=== PATIENT | female | born 1980 | race Caucasian/White ===

== ENCOUNTER 2022-05-30 13:04 | Emergency (ER) | payer BC, SELFPAY ==
[2022-05-30 13:05] VITALS: BP 85/76; PULSE 101; RESP 24; TEMP 36.9; O2SAT 100
--- NOTE | 2022-05-30 14:08 | EDS_ITS ---
HPI HPI - GI History of Present Illness Chief Complaint: Abd Pain Detail of Chief Complaint: Epigastric gnawing pain with hematemesis Informant: patient Abdominal Pain/Flank Pain Onset: Today (Patient vomited twice what it was dark-colored menstrual appearing blood.) Context: Sudden Onset Timing: Intermittent Quality: Burning Location: Epigastric Current Severity: Mild Maximum Severity: Moderate Worsened by: Food and - (Palpation) Nausea/Vomiting/Emesis GI Symptom: Positive for Nausea and Vomiting (X2 with what patient believes to be blood) Onset: Hours Quality: Positive for Hematemesis Severity: Mild Diarrhea/Melena/Hematochezia GI Symptom: Positive for Diarrhea (Diarrhea started 2 weeks ago. Patient thinks she has norovirus.) and Melena (Patient reports black-colored stool on Monday. She had Pepto-Bismol 10 days ago.); Negative for Hematochezia Associated Symptoms Associated Symptoms: Negative for Dysuria, Frequency, Hematuria or Urgency LMP: Last week, patient is not sexually active Narrative Narrative: Patient is a 42-year-old woman with no significant past medical history other than migraine headaches. She does take meloxicam for her migraine headaches. She states she had diarrhea 2 weeks ago. She believes she had norovirus. This morning she had episode of diarrhea and took Imodium. She states she vomited twice. She had a pink strawberry colored shake for breakfast since she is on a diet. She states the emesis had appearance of dark menstrual colored blood. She vomited twice what appeared to be blood. She does not believe her stool was black this morning. She denies bruising easily or blood in her urine. She did report bleeding of her gums when she brushed her teeth this morning. This is abnormal for her. She is not on an anticoagulant and she is on no antithrombotic agent. She denies fever, chills night sweats. She denies headache, visual, ocular auditory symptoms. She denies chest pain, orthopnea or PND. She does report slight shortness of breath with exertion. She does endorse lightheadedness. She denies thirst or dry mouth. She denies cough or shortness of breath at rest. Patient complains of a gnawing epigastric pain. It does not radiate. She denies intolerance to greasy or fried foods. She denies history of biliary disease. She denies history of renal disease and specifically renal or ureterolithiasis. Prior similar symptoms: No Recent Illness/Hospitalization: No [facility] Medical History (Updated 05/30/22 @ 16:[address] Stefan Rubin MD) Migraine Home Medications loperamide 1 mg/7.5 mL oral liquid (Imodium A-D) 6 mg PO QHS PRN Diarrhea 05/30/22 [History Last Taken 05/29/22] meloxicam 15 mg tablet 15 mg PO QHS PAIN 05/30/22 [History Last Taken 05/28/22] pantoprazole 40 mg tablet,delayed release 40 mg PO DAILY GERD 05/30/22 [History Last Taken 05/29/22] rizatriptan 10 mg tablet 10 mg PO PRN PRN Migraine Headache 05/30/22 [History Last Taken 05/28/22] sucralfate 1 gram tablet (Carafate) 1 g PO .AC & #120 tabs 05/30/22 [Rx Last Taken Unknown] sumatriptan succinate 6 mg/0.5 mL subcutaneous pen injector 6 mg subcut PRN PRN Migraine Headache 05/30/22 [History Last Taken 05/28/22] tirzepatide 7.5 mg/0.5 mL subcutaneous pen injector (Mounjaro) 7.5 mg subcut QWEEK . 05/30/22 [History Last Taken 05/28/22] trazodone 100 mg tablet 200 mg PO QHS SLEEP 05/30/22 [History Last Taken 05/29/22] Allergy/AdvReac Type Severity Reaction Status Date / Time bee venom protein (honey bee) Allergy Anaphylaxis Verified 05/30/22 13:05 shellfish derived Allergy Anaphylaxis Verified 05/30/22 13:05 Surgical History no surgical history no surgical history Social History (Updated 05/30/22 @ 14:[address] Stefan Rubin MD) household members: spouse Smoking Status: Never smoker substance use type: does not use ROS ROS ED Constitutional Constitutional ED: Reports weight loss; Denies chills, fever(s), subjective or sweats ENT ENT ED: Denies ear pain, rhinorrhea or sore throat Cardiovascular Cardiovascular: Reports other Details: Orthostatic symptoms. ; Denies chest pain, orthopnea, palpitations, paroxysmal nocturnal dyspnea or racing heartbeat Respiratory/Chest Respiratory/Chest: Reports dyspnea on exertion; Denies cough, dyspnea, orthopnea or paroxysmal nocturnal dyspnea Gastrointestinal Gastrointestinal: Reports abdominal pain, melena, nausea, vomiting and other Details: Rater detail documented in the HPI narrative ; Denies constipation or diarrhea Genitourinary Genitourinary ED: Denies dysuria or hematuria Musculoskeletal Musculoskeletal: Denies arthralgias, back pain, myalgias or neck pain Integumentary Denies Abrasions or rash Neurologic Neurologic: Denies headache(s), paresthesias or weakness Endocrine Endocrinology: Denies polydipsia, polyphagia or polyuria Hematologic/Lymphatic Hematologic/Lymphatic: Denies easy bleeding or easy bruising EXAM Physical Exam Const Vital Signs: 05/30/22 13:05 05/30/22 15:43 Temperature 98.5 F Temperature Source Temporal Pulse Rate 101 H 113 H Respiratory Rate 24 H 18 Blood Pressure 85/76 L 101/78 Blood Pressure Mean 79 85 Pulse Ox 100 97 Oxygen Delivery Method Room Air Room Air Positive well nourished, well developed and obese Constitutional Narrative: Patient does appear slightly pale. General Appearance ED: well developed, NAD and pallor Nutritional Appearance: obese HEENT Reports TM's clear and moist mucous membranes HEENT Narrative: Posterior pharynx is normal. normocephalic and atraumatic Tympanic Membrane ED: Yes TM's clear Eyes PERRL General Eye ED: Yes pale conjunctiva; Negative for scleral icterus Neck no lymphadenopathy, supple and no JVD Resp normal respiratory effort and clear to auscultation bilaterally Cardio regular rhythm, S1 normal heart sound, S2 normal heart sound and no murmurs Rate: tachycardic GI non-distended and no masses; Negative for non-tender Auscultation: hypoactive bowel sounds Palpation: soft and tender epigastric Back/Spine no CVA tenderness Thoracic Spine / Upper Back: Negative for thoracic spinal tenderness Lumbar Spine / Lower Back: Negative for lumbar spinal tenderness Extremity full ROM General Extremety ED: Negative for edema or tenderness General Extremity: Negative for edema Neuro CN's II-XII intact bilaterally, moves all extremities and no sensory deficits noted Sensorium / Orientation: alert Psych mental status grossly normal and thought process normal Skin no wounds General Skin Exam: pallor; Negative for jaundice Lesions: no lesions Rashes: no rashes MDM MDM MDM Narrative Medical decision making narrative: Patient is vital signs are remarkable for hypotension and tachycardia. She endorses orthostatic symptoms. She is on an NSAID, meloxicam. She denies history of GERD, reflux, esophagitis or gastritis. She does have history of hiatal hernia and reason she is on Protonix. Patient will receive 1 L normal saline she is hypotensive and tachycardic. Stool was sent for occult blood since it is not black in appearance on digital exam. Furthermore there was no fissures, fistulas or hemorrhoids noted. CBC to assess H&H and she appears pale. Basic metabolic panel to assess renal function, electrolytes as well as BUN to creatinine ratio which 1 would expect to be elevated with GI bleed. Coags were obtained since she is reporting bleeding from her gums, which is not normal for her. Lab Data Attestation: I reviewed the patient's lab results. Lab results narrative: White count is slightly elevated and is not significant. Coags normal. Basic metabolic panel reveals a nonanion gap acidosis. Potassium slightly low at 3 1. Labs: Laboratory Results - last 24 hr 05/30/22 05/30/22 05/30/22 14:00 14:00 14:00 WBC 12.3 H RBC 5.05 Hgb 15.3 H Hct 43.3 MCV 85.7 MCH 30.3 MCHC 35.3 RDW Std Deviation 40.4 RDW Coeff of Santos 13.1 Plt Count 309 MPV 10.1 Immature Gran % (Auto) 0.200 Neut % (Auto) 73.0 H Lymph % (Auto) 13.2 L [place] % (Auto) 4.5 Eos % (Auto) 8.9 H Baso % (Auto) 0.2 Absolute Neuts (auto) 9.0 H Absolute Lymphs (auto) 1.62 Nucleated RBC % 0 PT 13.6 INR 1.1 APTT 23.9 L Sodium 140 Potassium 3.3 L Chloride 108 H Carbon Dioxide 19.0 L Anion Gap 13 BUN 11 Creatinine 0.74 Estim Creat Clear Calc 79.13 Est GFR (MDRD) Af Amer 111 Est GFR (MDRD) Non-Af 92 BUN/Creatinine Ratio 14.8 Glucose 97 Calcium 9.5 Blood Type Antibody Screen 05/30/22 14:00 WBC RBC Hgb Hct MCV MCH MCHC RDW Std Deviation RDW Coeff of Santos Plt Count MPV Immature Gran % (Auto) Neut % (Auto) Lymph % (Auto) [place] % (Auto) Eos % (Auto) Baso % (Auto) Absolute Neuts (auto) Absolute Lymphs (auto) Nucleated RBC % PT INR APTT Sodium Potassium Chloride Carbon Dioxide Anion Gap BUN Creatinine Estim Creat Clear Calc Est GFR (MDRD) Af Amer Est GFR (MDRD) Non-Af BUN/Creatinine Ratio Glucose Calcium Blood Type B NEGATIVE Antibody Screen NEGATIVE Rhythm Strip Rhythm Strip: Sinus Rhythm Rate: 99 Treatment and Re-Evaluation Narrative: NG was placed. NG was in the stomach on KUB. Patient has no coffee-ground material or blood noted. Therefore NG was pulled. She was treated with IV Pepcid which helped the burning. She also was given a GI cocktail. We will add Carafate to her present regimen. She did have a colonoscopy Discharge Plan Triage Chief Complaint: Abd Pain Other Complaint: GI Bleed Nausea/Vomiting ED Provider: Stefan Rubin Dx/Rx/DC Orders Clinical Impression: Nausea & vomiting, Occult blood in stools, Acute epigastric pain, Diarrhea, Acute hypokalemia Instructions: ED Diet Vomiting Diarrhea Prescriptions: New sucralfate [Carafate] 1 gram tablet 1 g PO .AC & Qty: 120 0RF No Action meloxicam 15 mg tablet 15 mg PO QHS rizatriptan 10 mg tablet 10 mg PO PRN PRN (Reason: Migraine Headache) trazodone 100 mg tablet 200 mg PO QHS pantoprazole 40 mg tablet,delayed release (DR/EC) 40 mg PO DAILY sumatriptan succinate 6 mg/0.5 mL pen injector 6 mg SUBCUT PRN PRN (Reason: Migraine Headache) Label Comments: INJECT 6mg (0.5ml) SUBCUTANEOUSLY DAILY NEEDED FOR MIGRAINE loperamide [Imodium A-D] 1 mg/7.5 mL Liquid 6 mg PO QHS PRN (Reason: Diarrhea) Mounjaro 7.5 mg/0.5 mL pen injector 7.5 mg SUBCUT QWEEK Label Comments: INJECT 7.5 mg under the skin once a week Primary Care Provider: Estrada Hinton Referrals: [facility] Doctor,Out of [Non-Staff] - 3-5 Days if not improving Disposition Disposition: Home, Self Care
[2022-05-30 14:15] LABS: Absolute Lymphocyte Count 1.62 X10^3/uL (0.83-4.51); Basophil# 0.02 X10^3/uL; Basophil% 0.2 % (0-1); Eosinophils% 8.9 % (0-5); Hematocrit 43.3 % (37-47); Hemoglobin 15.3 g/dL (12.0-15.0); Lymphocyte # 1.62 X10^3/ul (0.83-4.51); Lymphocyte % 13.2 % (19-41); Mean Corp Hgb Conc 35.3 g/dL (32-36); Mean Corpuscular Hgb 30.3 pg (27.0-32.0); Mean Corpuscular Volume 85.7 fL (81-99); Mean Platelet Vol. 10.1 fl (6.2-12.0); Monocyte# 0.56 X10^3/uL; Monocyte% 4.5 % (0-10); NRBC Flagged by Analyzer 0 % (0-5); Neutrophil # 8.98 X10^3/uL (2.7-7.7); Platelet Count 309 K/mm3 (150-450); RBC Distribution Width CV 13.1 % (11.6-14.6); RBC Distribution Width SD 40.4 fl (35.1-43.9); Red Blood Count 5.05 M/mm3 (4.2-5.4); White Blood Count 12.3 K/mm3 (4.4-11.0)
[2022-05-30 14:21] LABS: International Normalized Ratio 1.1; Prothrombin Time (Protime)PT. 13.6 SECONDS (11.7-14.9)
[2022-05-30 14:22] LABS: Partial Thromboplast Time 23.9 Seconds (24.1-36.2)
[2022-05-30 14:27] VITALS: BMI 39.4
[2022-05-30 14:31] LABS: Anion Gap 13 (5-15); BUN 11 mg/dL (7-18); BUN/Creat Ratio 14.8 RATIO (10-20); Calcium,Total 9.5 mg/dL (8.5-10.1); Chloride 108 mmol/L (98-107); Creatinine, Serum 0.74 mg/dL (0.55-1.02); EST Glomerular Filtration Rate 92 mL/min (>60); Est Glom Filt Rate - Afr Amer 111 mL/min (>60); Estimated Creatinine Clearance 79.13 ml/min; Glucose 97 mg/dL (74-106); Potassium 3.3 mmol/L (3.5-5.1); Sodium Level 140 mmol/L (136-145)
[2022-05-30] MEDS: Famotidine 200 MG/20 ML MDV 20 MG in 0.9% Normal Saline (Pres. free 8 ML 300 MG IV (14:57)
[2022-05-30] MEDS: LORazepam 2 MG/ML Syringe 0.5 MG IV (14:57)
[2022-05-30] MEDS: Oxymetazoline 0.05% 1 SPRAY SPRAY.BTL NASAL (15:24)
[2022-05-30] MEDS: Lidocaine Jelly 2% 20 ML Syringe (URO-JET) 1 APPLIC TOPICAL (15:25)
[2022-05-30 15:43] VITALS: BP 101/78; PULSE 113; RESP 18; O2SAT 97
--- NOTE | 2022-05-30 15:43 | RAD_ITS ---
INDICATION: NG Insertion -- Check for blood EXAMINATION/TECHNIQUE: X-RAY - XR Abdomen 1 View COMPARISON: None RAD/Abdomen Single View (Portable) IMPRESSION: NG tube terminates over the gastric fundus with sidehole below the diaphragm. Partially visualized bowel gas pattern is nonobstructive. Electronically Signed: Mauri Jade MD at 16:51 EST ,
--- NOTE | 2022-05-30 16:02 | ED.RN ---
no blood noted to MD JANNETTE ordered to remove. tolerated well. Dr. Rubin notified of pt's pain. GI cocktail ordered.
[2022-05-30] MEDS: Mag Hydrox/Al Hydrox/Simeth 30 ML UDC PO (16:10)
[2022-05-30 16:32] VITALS: BP 112/84; PULSE 104; RESP 17; O2SAT 96
== END 2022-05-30 16:35 | disposition home or self-care (01) ==
PROVIDERS: Emergency Provider Emergency Medicine; PCP Family Medicine; Visit Provider Emergency Medicine
DX: R11.2 Nausea with vomiting, unspecified (principal); R19.5 Other fecal abnormalities; E87.6 Hypokalemia; R10.13 Epigastric pain; R19.7 Diarrhea, unspecified; I95.9 Hypotension, unspecified; R00.0 Tachycardia, unspecified; Z79.1 Long term (current) use of non-steroidal anti-inflammatories (NSAID)
CPT/HCPCS: 74018; 80048; 82274; 85025; 85610; 85730; 86850; 86900; 86901; 96365; 96375; 99285; A4216; J3490